=== PATIENT | female | born 1970 | race Caucasian/White ===

== ENCOUNTER → 2020-09-09 | Day surgery (SDC) | payer OTHER ==
[~2020-09-09] MED LIST: ESTRACE2 MG PO; HYDROCODONE-AC1 EAC1 PO; LORTAB PO; NAPROXEN500 MG PO; NEURONTIN300 MG PO; PERCOCET 10-321 EACH PO; PROTONIX40 MG PO; VALIUM 5 MG TAB5 MG PO
[2020-09-09 06:23] LABS: RED BLOOD COUNT 4.06 M/UL (4.00-5.10); WHITE BLOOD COUNT 8.4 K/UL (4.5-11.0)
[2020-09-09 06:41] LABS: BUN/CREATININE RATIO 11 (0-10)
== END | disposition home or self-care (01) ==
LOC: OR 05:28
PROVIDERS: Orthopaedic Surgery
PROC: 0RRL0JZ Replacement of Right Elbow Joint with Synthetic Substitute, Open Approach (ICD-10-PCS; 2020-09-09)
PROC: 0RSLXZZ Reposition Right Elbow Joint, External Approach (ICD-10-PCS; 2020-09-09)
PROC: 3E0T3BZ Introduction of Anesthetic Agent into Peripheral Nerves and Plexi, Percutaneous Approach (ICD-10-PCS; 2020-09-09)
PROC: 0MQ30ZZ Repair Right Elbow Bursa and Ligament, Open Approach (ICD-10-PCS; principal; 2020-09-09 07:30)
DX: S52.121A Displaced fracture of head of right radius, initial encounter for closed fracture (principal); S42.131A Displaced fracture of coracoid process, right shoulder, initial encounter for closed fracture; S53.31XA Traumatic rupture of right ulnar collateral ligament, initial encounter; G89.18 Other acute postprocedural pain; K21.9 Gastro-esophageal reflux disease without esophagitis; G89.29 Other chronic pain; M48.061 Spinal stenosis, lumbar region without neurogenic claudication; Z88.8 Allergy status to other drugs, medicaments and biological substances; Z79.899 Other long term (current) drug therapy; Z20.822 Contact with and (suspected) exposure to COVID-19; W10.9XXA Fall (on) (from) unspecified stairs and steps, initial encounter
CPT/HCPCS: 36415; 73080; 76000; 80048; 85027; 93005; C1713; C1776; J0592; J0690; J1100; J2001; J2250; J2405; J2704; J2765; J2795; J3010; J3370; J7120

== ENCOUNTER → 2020-12-18 | Outpatient (CLI) | payer OTHER ==
[2020-12-18 11:52] LABS: BUN/CREATININE RATIO 9 (0-10)
== END ==
LOC: OPSV2 10:27
PROVIDERS: Orthopaedic Surgery
DX: Z01.812 Encounter for preprocedural laboratory examination (principal); M24.521 Contracture, right elbow
CPT/HCPCS: 36415; 80048

== ENCOUNTER → 2020-12-23 | Day surgery (SDC) | payer OTHER ==
[~2020-12-23] VITALS: Ht 152.4 cm; Wt 67.1 kg
== END | disposition home or self-care (01) ==
LOC: OR 06:01
DX: T84.82XA Fibrosis due to internal orthopedic prosthetic devices, implants and grafts, initial encounter (principal); M24.631 Ankylosis, right wrist; M24.641 Ankylosis, right hand; M75.01 Adhesive capsulitis of right shoulder; K21.9 Gastro-esophageal reflux disease without esophagitis; F41.0 Panic disorder [episodic paroxysmal anxiety]; M54.9 Dorsalgia, unspecified; G89.29 Other chronic pain; Z88.8 Allergy status to other drugs, medicaments and biological substances; Z20.822 Contact with and (suspected) exposure to COVID-19; J45.909 Unspecified asthma, uncomplicated; M54.5 Low back pain; I10 Essential (primary) hypertension
CPT/HCPCS: 73030; 73080; 73100; 76000; J0171; J0690; J1100; J2001; J2250; J2405; J2704; J2795; J3010; J7120